=== PATIENT | male | born 1965 | race Caucasian/White ===

== ENCOUNTER 2024-04-04 09:06 | Emergency (ER) | payer SELFPAY ==
[2024-04-04 09:33] LABS: BASOPHILS ABSOLUTE AUTO 0.04 K/uL (0.00-0.10); BASOPHILS PERCENT AUTO 0.7 % (0.1-1.3); EOSINOPHILS ABSOLUTE AUTO 0.09 K/uL (0.00-0.40); EOSINOPHILS PERCENT AUTO 1.6 % (0.0-5.4); HEMATOCRIT 54.1 % (38.4-49.7); IMMATURE GRAN ABSOLUTE AUTO 0.03 K/uL (0.00-0.23); IMMATURE GRAN PERCENT AUTO 0.5 % (0.0-0.7); LYMPHOCYTES ABSOLUTE AUTO 2.51 K/uL (0.8-3.3); LYMPHOCYTES PERCENT AUTO 43.8 % (11.4-47.7); MEAN CORPUSCULAR HEMOGLOBIN 31.3 pg (31.6-35.5); MEAN CORPUSCULAR HGB CONC 34.2 g/dL (31.6-35.5); MEAN CORPUSCULAR VOLUME 91.5 fL (81.4-99.0); MONOCYTES ABSOLUTE AUTO 0.56 K/uL (0.20-0.90); MONOCYTES PERCENT AUTO 9.8 % (3.3-12.6); NEUTROPHILS PERCENT AUTO 43.6 % (40.0-78.1); PLATELET COUNT,PLT 224 K/uL (130-375); RED BLOOD CELL COUNT 5.91 M/uL (4.14-5.76); WHITE BLOOD CELL COUNT,WBC 5.7 K/uL (3.2-11.0)
[2024-04-04 09:36] LABS: HEMOGLOBIN 18.5 g/dL (12.9-16.9)
[2024-04-04] MEDS: Diltiazem 25 MG/5 ML SDV IVPUSH ONE (09:38)
[2024-04-04] MEDS: Sodium Chloride 0.9% 500 ML IV ONE (09:39)
[2024-04-04 09:58] LABS: ALANINE AMINOTRANSFERASE,ALT 25 U/L (12-78); ALBUMIN 4.1 g/dL (3.4-5.0); ALKALINE PHOSPHATASE 97 U/L (46-116); ANION GAP 11.8 mmol/L (5.0-14.0); ASPARTATE AMNIOTRANSFERASE,AST 17 U/L (15-37); BILIRUBIN TOTAL 0.6 mg/dL (0.2-1.0); BLOOD UREA NITROGEN,BUN 13 mg/dL (7-18); CALCIUM 9.4 mg/dL (8.5-10.1); CARBON DIOXIDE,CO2 26 mmol/L (21-32); CHLORIDE,CL 104 mmol/L (100-108); EST CRCL DRUG DOSING (CG) 82.13 mL/min; ESTIMATED GFR 87 mL/min (>60); GLUCOSE RANDOM 120 mg/dL (74-106); PROTEIN TOTAL,TP 8.3 g/dL (6.4-8.2); SODIUM,NA 142 mmol/L (140-148); TROPONIN I HIGH SENSITIVITY 6.9 pg/mL (<=60.3); TSH ULTRASENSITIVE 1.166 uIU/mL (0.358-3.740)
[2024-04-04] MEDS ORDERED: Diltiazem 180 MG Cap.CD PO ONE (10:17)
[2024-04-04] MEDS: Diltiazem 120 MG Cap.CD PO ONE (10:27)
[2024-04-04] MEDS: Apixaban 5 MG Tab PO ONE (10:28)
[2024-04-04] MEDS ORDERED: Diltiazem 25 MG/5 ML SDV IVPUSH ONE (10:38)
== END 2024-04-04 11:00 | disposition home or self-care (01) ==
LOC: JP.ED 09:06
DX: I48.20 Chronic atrial fibrillation, unspecified (principal); F17.210 Nicotine dependence, cigarettes, uncomplicated
CPT/HCPCS: 36415; 71045; 80053; 84443; 84484; 85025; 93005; 96374; 99285; A9270; J3490; J7040

== ENCOUNTER 2024-09-16 12:12 | Emergency (ER) | payer MEDICAID ==
[2024-09-16] MEDS: Ketorolac 30 MG/ML SDV IM ONE (13:18)
== END 2024-09-16 13:38 | disposition home or self-care (01) ==
LOC: JP.ED 12:12
DX: K04.7 Periapical abscess without sinus (principal); K02.52 Dental caries on pit and fissure surface penetrating into dentin; F17.210 Nicotine dependence, cigarettes, uncomplicated; Z79.899 Other long term (current) drug therapy
CPT/HCPCS: 96372; 99283; J1885